=== PATIENT | female | born 1995 | race Caucasian/White ===

== ENCOUNTER 2021-02-20 09:12 | Emergency (ER) | payer OTHER ==
[~2021-02-20] VITALS: Ht 154.9 cm; Wt 69.0 kg
[2021-02-20] MEDS ORDERED: FAMOTIDINE20 M1 PO (10:01)
[2021-02-20 10:13] LABS: HEMATOCRIT 33.5 % (37.0-47.0); HEMOGLOBIN 11.1 g/dl (12.0-16.0); IMMATURE GRANULOCYTES 0.7 % (0.0-5.0); MEAN CELL VOLUME 89.3 fL CALC (80.0-100.0); MEAN CORPUSCULAR HGB 29.6 pG CALC (26.0-32.0); MEAN CORPUSCULAR HGB CONC 33.1 g/dL CAL (32.0-36.0); NEUT# 4.03 thou/uL (2.00-7.15); RED BLOOD COUNT 3.75 mill/uL (4.20-5.60); RED CELL DISTRI WIDTH 13.6 % (11.5-15.5)
[2021-02-20 10:15] LABS: URINE BILIRUBIN - DIPSTICK NEGATIVE (NEGATIVE); URINE BLOOD DIPSTICK NEGATIVE (NEGATIVE); URINE COLOR YELLOW; URINE GLUCOSE - DIPSTICK NEGATIVE (NEGATIVE); URINE KETONE NEGATIVE (NEGATIVE); URINE LEUK ESTERASE NEGATIVE (NEGATIVE); URINE PROTEIN - DIPSTICK TRACE mg/dL (NEG-TRACE); URINE SPECIFIC GRAVITY 1.015; URINE UROBILINOGEN - DIPSTICK 0.2 E.U./dL (0.2)
[2021-02-20 10:19] LABS: URINE NITRITE - DIPSTICK NEGATIVE (Negative)
[2021-02-20 10:28] LABS: ALBUMIN 3.5 g/dL (3.2-5.0); ALKALINE PHOSPHATASE 89 u/l (38-126); ANION GAP 9 (6-22 (CALC)); BILIRUBIN, TOTAL 0.3 mg/dL (0.0-1.4); BUN 6 mg/dL (7-17); BUN/CREATININE RATIO 14 (12-20 (CALC)); CARBON DIOXIDE 24 mmol/l (22-30); CHLORIDE 104 mmol/l (95-108); CREATININE 0.5 mg/dL (0.5-1.0); GFR > 60 ML/MIN (>=60 (CALC)); GFR FOR AFR.AMER. > 60 ML/MIN (>=60 (CALC)); POTASSIUM 3.8 mmol/l (3.5-5.1); SGOT/AST 20 u/l (14-36); SODIUM 133 mmol/l (137-146); TOTAL PROTEIN 6.5 g/dL (6.3-8.2)
[2021-02-20 10:45] LABS: BETA-HCG, QUANT(RESULT NUMBER) 6386 mIU/mL
[2021-02-20] MEDS ORDERED: PHENERGAN25 MG/TAB PO (11:16)
[2021-02-20] MEDS ORDERED: REGLAN10 MG PO (11:16)
[2021-02-20 11:23] VITALS: BP 102/59
== END 2021-02-20 11:28 | disposition home or self-care (01) ==
LOC: ED 09:12
PROVIDERS: Family Medicine
DX: O26.893 Other specified pregnancy related conditions, third trimester (principal); Z3A.31 31 weeks gestation of pregnancy

== ENCOUNTER 2021-08-28 13:35 | Emergency (ER) | payer OTHER ==
[~2021-08-28] VITALS: Ht 154.9 cm; Wt 78.0 kg
[~2021-08-28 13:35] MED LIST: FAMOTIDINE20 M1 PO; PHENERGAN25 MG/TAB PO; REGLAN10 MG PO
[2021-08-28 15:29] VITALS: BP 127/67
== END 2021-08-28 15:30 | disposition home or self-care (01) ==
LOC: ED 13:35
DX: R51.9 Headache, unspecified (principal); S39.92XA Unspecified injury of lower back, initial encounter; W19.XXXA Unspecified fall, initial encounter

== ENCOUNTER 2023-10-03 11:13 | Emergency (ER) | payer OTHER ==
[~2023-10-03] VITALS: Ht 154.9 cm; Wt 59.0 kg
[2023-10-03 12:15] VITALS: BP 111/69
[2023-10-03 12:20] LABS: ALKALINE PHOSPHATASE 56 u/l (38-126); BUN 10 mg/dL (7-17); BUN/CREATININE RATIO 16 (12-20 (CALC)); CARBON DIOXIDE 26 mmol/l (22-30); CHLORIDE 108 mmol/l (95-108); CREATININE 0.6 mg/dL (0.5-1.0); GFR FOR AFR.AMER. > 60 ML/MIN (>=60 (CALC)); GFR OTHER RACES > 60 ML/MIN (>=60 (CALC)); POTASSIUM 3.7 mmol/l (3.5-5.1); SGOT/AST 26 u/l (14-36)
[2023-10-03 12:21] LABS: ALBUMIN 4.8 g/dL (3.2-5.0); ANION GAP 11 (6-22 (CALC)); BILIRUBIN, TOTAL 0.6 mg/dL (0.02-1.3); SODIUM 141 mmol/l (137-146); TOTAL PROTEIN 8.2 g/dL (6.3-8.2)
[2023-10-03 12:27] LABS: BASO% 0.3 % (0-3); EOS% 0.7 % (0-8); HEMATOCRIT 37.6 % (37.0-47.0); HEMOGLOBIN 12.7 g/dl (12.0-16.0); IMMATURE GRANULOCYTES 0.1 % (0.0-5.0); LYMPH% 33.5 % (15-41); MEAN CELL VOLUME 84.5 fL CALC (80.0-100.0); MEAN CORPUSCULAR HGB 28.5 pG CALC (26.0-32.0); MEAN CORPUSCULAR HGB CONC 33.8 g/dL CAL (32.0-36.0); MONO% 6.3 % (2-13); NEUT# 4.02 thou/uL (2.00-7.15); NEUT% 59.1 % (42-76); RED BLOOD COUNT 4.45 mill/uL (4.20-5.60); RED CELL DISTRI WIDTH 12.5 % (11.5-15.5)
[2023-10-03 12:30] VITALS: BP 112/77
[2023-10-03 12:45] VITALS: BP 109/73
[2023-10-03 12:51] LABS: TSH, 3RD GENERATION 1.36 uIU/mL (0.47 - 4.68)
[2023-10-03 13:00] VITALS: BP 91/57
[2023-10-03] MEDS ORDERED: MECLIZINE 2525 MG PO (14:37)
[2023-10-03 14:46] VITALS: BP 91/57
== END 2023-10-03 14:52 | disposition home or self-care (01) ==
LOC: ED 11:13
PROVIDERS: Family Medicine
DX: R42 Dizziness and giddiness (principal); N63.15 Unspecified lump in the right breast, overlapping quadrants; Z20.822 Contact with and (suspected) exposure to COVID-19